=== PATIENT | female | born 1990 | race Caucasian/White ===

== ENCOUNTER 2018-02-12 06:20 | Day surgery (SDC) | payer MEDICAID, OTHER ==
[2018-02-06 17:59] VITALS: BMI 25.0
[~2018-02-12 06:20] MED LIST: DEXAMETHASONE SOD PHOSPHATE 10 MG/ML 1 ML VIAL IV ONE; HEPARIN SODIUM,PORCINE 5,000 UNIT/ML 1 ML VIAL SQ ONE; LACTATED RINGERS 1,000 ML IV SCH; LIDOCAINE 1% 20 ML VIAL (10MG/ML) FOR IV START INTRADERMA PRN; MORPHINE SULFATE 2 MG/ML SYRINGE IV PRN; ONDANSETRON 4 MG/2 ML VIAL IVP ONE; SCOPOLAMINE 1.5MG/72HR PATCH TRANSDERM ONE; ceFAZolin IN SWFI 2 GM/20 ML SYRINGE IVP ONE
[2018-02-12 07:01] VITALS: TEMP 97.2
[2018-02-12 07:32] LABS: Basophils % (A) 1 %; Eosinophils # (A) 0.2 k/uL (0-0.7); Eosinophils % (A) 3 %; HCT 36.6 % (34.0-46.0); HGB 12.5 gm/dL (11.4-16.0); Lymphocytes # (A) 1.3 k/uL (1.0-4.8); Lymphocytes % (A) 26 %; MCH 29.8 pg (25.0-35.0); MCHC 34.2 g/dL (31.0-37.0); MCV 87.3 fL (80.0-100.0); Mean Platelet Volume 8.5; Monocytes # (A) 0.3 k/uL (0-1.0); Monocytes % (A) 6 %; Neutrophils # (A) 2.9 k/uL (1.3-7.7); Neutrophils % (A) 61 %; Platelet Count 201 k/uL (150-450); WBC 4.8 k/uL (3.8-10.6)
--- NOTE | 2018-02-12 07:47 | P.GSHP ---
History of Present Illness H&P Date: 02/12/18 Chief Complaint: Ventral hernia Patient here today for elective repair of a incarcerated ventral hernia. This is causing pain at times. This is increasing in size. No prior trauma or surgeries at that location. Location just above the umbilicus. Past Medical History Past Medical History: Asthma Additional Past Medical History / Comment(s): SEASONAL ALLERGIES. INCARCERATED VENTRAL HERNIA. History of Any Multi-Drug Resistant Organisms: None Reported Past Surgical History: Section Additional Past Surgical History / Comment(s): CERVICAL CYST REMOVED Past Anesthesia/Blood Transfusion Reactions: Motion Sickness Smoking Status: Never smoker - Past Family History Mother Family Medical History: Cancer Medications and Allergies Home Medications Medication Instructions Recorded Confirmed Type Iron (Unknown Dose) 1 tab PO BID 02/06/18 History Allergies Allergy/AdvReac Type Severity Reaction Status Date / Time No Known Allergies Allergy Verified 02/06/18 17:29 Surgical - Exam Vital Signs Temp Pulse Resp BP Pulse Ox 97.2 F L 61 16 103/59 99 02/12/18 07:00 02/12/18 07:00 02/12/18 07:00 02/12/18 07:00 02/12/18 07:00 Physical exam: General: Well-developed, well-nourished HEENT: Normocephalic, sclerae nonicteric Abdomen: Nontender, nondistended, incarcerated hernia present 2 cm above the umbilicus, fascial defect unable to be palpated Extremities: No edema Neuro: Alert and oriented Results - Labs 02/12/18 07:25 Assessment and Plan (1) Incarcerated ventral hernia Narrative/Plan: Will proceed with operative repair with possible mesh. Risks of bleeding, infection, recurrence, bowel and bladder injury, pain, scarring, seroma formation were reviewed. Patient understands and wishes to proceed. Current Visit: Yes Status: Acute Code(s): K46.0 - UNSP ABDOMINAL HERNIA WITH OBSTRUCTION, WITHOUT GANGRENE SNOMED Code(s): 190141196
[2018-02-12] MEDS ORDERED: MIDAZOLAM 2 MG/2 ML VIAL ONE (08:33)
[2018-02-12] MEDS ORDERED: LIDOCAINE 1% INJ 10MG/ML (20 ML MDV) ONE (08:33)
[2018-02-12] MEDS ORDERED: KETOROLAC 30 MG/ML 1 ML VIAL ONE (08:33)
[2018-02-12] MEDS ORDERED: fentaNYL (PF) 50 MCG/ML 2 ML AMP ONE (08:33)
[2018-02-12] MEDS ORDERED: PROPOFOL 10 MG/ML 20 ML VIAL IV ONE (08:33)
[2018-02-12] MEDS ORDERED: BUPIVACAINE (PF) 0.5% 30 ML VIAL SQ ONE ×2 (08:51)
[2018-02-12] MEDS ORDERED: LACTATED RINGERS 1,000 ML IV ONE (09:29)
[2018-02-12] MEDS ORDERED: HYDROcodone/APAP 5-325MG 1 EACH TAB PO PRN (09:34)
[2018-02-12] MEDS ORDERED: NALOXONE 0.4 MG/ML 1 ML VIAL IV PRN (09:34)
--- NOTE | 2018-02-12 09:39 | P.OP ---
Date of Procedure: 02/12/18 Procedure(s) Performed: PREOPERATIVE DIAGNOSIS: Incarcerated ventral hernia POSTOPERATIVE DIAGNOSIS: Same PROCEDURE: Incarcerated ventral herniorrhaphy with mesh SURGEON: Tiffany EBL: Minimal ANESTHESIA: General COMPLICATIONS: None OPERATIVE PROCEDURE: The patient was placed in the operating table in the supine position. A supraumbilical midline incision was made using the scalpel. The subcutaneous tissues were dissected bluntly. The hernia sac was identified. The hernia sac was partially excised. The remainder of the preperitoneal fat was reduced back into the preperitoneal space. The repairwas bluntly dissected. The defect in the fascia measured approximately 1.2 cm in diameter. We had adequate space in the preperitoneal location for a or 4.3 cm mesh. The 4.3 cm ventral ex mesh was utilized. The cyst was placed in the preparedand sutured to the fascia using interrupted 0 Ethibond trans-fascial sutures. The remaining defect was then closed using [id number] 0 Ethibond sutures. The subcutaneous tissues were reapproximated using inverted 3-0 Vicryl sutures. The skin was closed using 4-0 Monocryl sutures. Steri-Strips and sterile dressings were then applied. DISPOSITION: Stable to recovery room
--- NOTE | 2018-02-12 10:37 | P.ONQ ---
Anesthesiology Proc Note - PNB - Peripheral Nerve Block Performed Right Transversus Abdominis Single Time Out Performed: Yes Procedure Start Time: 10:10 Procedure Stop Time: 10:20 Indication: Acute Post-Operative Pain Sedation Type: Awake Preparation: Sterile Prep Position: Supine Needle Types: Other (see comment) (PUJUNK) Needle Size: 100mm (4") Needle Gauge: 20 Technique: Ultrasound Injectate: Other (see comment) (Ropivacaine 0.25 % 20 ml) Blood Aspirated: No Pain Paresthesia on Injection Noted: No Resistance on Injection: Normal Events: Uneventful and Well Tolerated (patients was complaing of sever abdominal pain post op pain in the PACU)
--- NOTE | 2018-02-12 10:40 | P.ONQ ---
Anesthesiology Proc Note - PNB - Peripheral Nerve Block Performed Left Transversus Abdominis Single Time Out Performed: Yes Procedure Start Time: :23 Procedure Stop Time: :30 Indication: Acute Post-Operative Pain Sedation Type: Awake Preparation: Sterile Prep Needle Types: Other (see comment) (PUJUNK) Needle Gauge: 20 Technique: Ultrasound Injectate: Other (see comment) (Ropivacain 0.25 % 20 ml) Blood Aspirated: No Pain Paresthesia on Injection Noted: No Resistance on Injection: Normal Events: Uneventful and Well Tolerated (the block done in the PACU , because pateints was complaining of sever abdominal pain .)
[2018-02-12 11:08] VITALS: RESP 16
[2018-02-12 11:37] VITALS: BP 101/66; PULSE 68
== END 2018-02-12 11:58 | disposition home or self-care (01) ==
LOC: OR 06:20
PROVIDERS: ATTEND Surgery
DX: K43.6 Other and unspecified ventral hernia with obstruction, without gangrene (principal); J45.909 Unspecified asthma, uncomplicated
CPT/HCPCS: 81025; 85025; 88302; 49561; 49568; 64488; C1781; J2250; J1644; J1100; J2405; J2001; J3010; J1885; J2704; J0690

== ENCOUNTER 2018-09-25 16:54 | Emergency (ER) | payer MEDICAID ==
[2018-09-25 17:03] VITALS: PULSE 79; TEMP 97.8
[2018-09-25 18:27] LABS: Basophils # (A) 0.1 k/uL (0-0.2); Basophils % (A) 1 %; Eosinophils # (A) 0.2 k/uL (0-0.7); Eosinophils % (A) 4 %; HCT 38.6 % (34.0-46.0); HGB 13.2 gm/dL (11.4-16.0); Lymphocytes # (A) 1.4 k/uL (1.0-4.8); Lymphocytes % (A) 25 %; MCHC 34.2 g/dL (31.0-37.0); MCV 90.7 fL (80.0-100.0); Mean Platelet Volume 8.8; Monocytes # (A) 0.2 k/uL (0-1.0); Monocytes % (A) 4 %; Neutrophils # (A) 3.7 k/uL (1.3-7.7); Neutrophils % (A) 65 %; Platelet Count 191 k/uL (150-450); RBC 4.25 m/uL (3.80-5.40); RDW 12.1 % (11.5-15.5); WBC 5.7 k/uL (3.8-10.6)
[2018-09-25 18:35] LABS: Partial Thromboplastin Time 27.1 sec (22.0-30.0); Prothrombin Time 10.9 sec (9.0-12.0)
[2018-09-25 18:39] LABS: ALT 28 U/L (9-52); AST 23 U/L (14-36); Albumin 4.8 g/dL (3.5-5.0); Alkaline Phosphatase 62 U/L (38-126); Anion Gap 9 mmol/L; Blood Urea Nitrogen 17 mg/dL (7-17); Calcium 9.5 mg/dL (8.4-10.2); Carbon Dioxide 26 mmol/L (22-30); Chloride 104 mmol/L (98-107); Creatine Kinase 95 U/L (30-135); Glucose 85 mg/dL (74-99); Lipase 52 U/L (23-300); Potassium 3.8 mmol/L (3.5-5.1); Sodium 139 mmol/L (137-145); Total Bilirubin 0.9 mg/dL (0.2-1.3); Total Protein 7.3 g/dL (6.3-8.2)
[2018-09-25 18:53] LABS: Creatine Kinase MB 0.6 ng/mL (0.0-2.4); Troponin I <0.012 ng/mL (0.000-0.034)
--- NOTE | 2018-09-25 18:54 | ED ---
Chest Pain HPI - General Chief Complaint: Extremity Injury, Upper Stated Complaint: lt arm numbness Time Seen by Provider: 09/25/18 17:06 Source: patient, RN notes reviewed, old records reviewed Mode of arrival: ambulatory Limitations: no limitations - History of Present Illness Initial Comments: This is a 28-year-old female the ER for evaluation. This patient presents today for evaluation regards to left arm numbness. Patient states she does have strong family history of heart disease, patient would like to be evaluated for her heart, states that she had both brother and father at young age of heart disease. She denies any chest pain or shortness of breath, symptoms of been persistent up today should see her family doctor earlier in the day with no significant symptoms or change. She did not make mention of her left arm numbness at the time but symptoms have persisted and made her worried. Patient has no medical history takes no medications denies drugs or alcohol abuse MD Complaint: other (Left arm numbness) -: hour(s) Onset: during rest Pain Location: other (No pain) Pain Radiation: LUE (Numbness) Severity: mild Severity scale (1-10): 2 Consistency: constant Improves With: nothing Worsens With: nothing Context: other (None) Anginal Symptoms: other (None) Other Symptoms: other (None) Treatments Prior to Arrival: none - Related Data Home Medications Medication Instructions Recorded Confirmed Dextroamphetamine/Amphetamine 30 mg PO BID 09/25/18 09/25/18 [Adderall] Allergies Allergy/AdvReac Type Severity Reaction Status Date / Time No Known Allergies Allergy Verified 09/25/18 17:18 Review of Systems ROS Statement: Those systems with pertinent positive or pertinent negative responses have been documented in the HPI. ROS Other: All systems not noted in ROS Statement are negative. EKG Findings - EKG Comments: EKG Findings:: EKG shows sinus rhythm rate of 70, TN 94, QRS 70, QTc 444 Past Medical History Past Medical History: Asthma Additional Past Medical History / Comment(s): SEASONAL ALLERGIES. INCARCERATED VENTRAL HERNIA. History of Any Multi-Drug Resistant Organisms: None Reported Past Surgical History: Section Additional Past Surgical History / Comment(s): CERVICAL CYST REMOVED Past Anesthesia/Blood Transfusion Reactions: Motion Sickness Past Psychological History: ADD/ADHD Smoking Status: Never smoker Past Alcohol Use History: None Reported Past Drug Use History: None Reported - Past Family History Mother Family Medical History: Cancer General Exam Limitations: no limitations General appearance: alert, in no apparent distress Head exam: Present: atraumatic, normocephalic, normal inspection Eye exam: Present: normal appearance, PERRL, EOMI. Absent: scleral icterus, conjunctival injection, periorbital swelling ENT exam: Present: normal exam, mucous membranes moist Neck exam: Present: normal inspection. Absent: tenderness, meningismus, lymphadenopathy Respiratory exam: Present: normal lung sounds bilaterally. Absent: respiratory distress, wheezes, rales, rhonchi, stridor Cardiovascular Exam: Present: regular rate, normal rhythm, normal heart sounds. Absent: systolic murmur, diastolic murmur, rubs, gallop, clicks GI/Abdominal exam: Present: soft, normal bowel sounds. Absent: distended, tenderness, guarding, rebound, rigid Extremities exam: Present: normal inspection, full ROM, normal capillary refill. Absent: tenderness, pedal edema, joint swelling, calf tenderness Back exam: Present: normal inspection Neurological exam: Present: alert, oriented X3, CN II-XII intact Psychiatric exam: Present: normal affect, normal mood Skin exam: Present: warm, dry, intact, normal color. Absent: rash Course Vital Signs 09/25/18 09/25/18 16:59 19:05 Temperature 97.8 F Pulse Rate 79 79 Respiratory 18 16 Rate Blood Pressure 134/89 111/69 O2 Sat by Pulse 100 100 Oximetry - Reevaluation(s) Reevaluation #1: Records reviewed Patient continues to deny chest pain shortness of breath nausea or diaphoresis Chest Pain MDM - MDM Plan I female the ER for evaluation, patient concern for heart. Patient has normal EKG and normal troponin. Patient offered inpatient observation, she refuses sustain at this time. Patient will be discharged home, EKG troponin chest x-ray negative again. She denies any chest pain or shortness of breath Disposition Clinical Impression: Chest pain Disposition: HOME SELF-CARE Condition: Good Instructions: Chest Pain (ED) Is patient prescribed a controlled substance at d/c from ED?: No Referrals: Felipe Milton DO [Primary Care Provider] - 1-2 days
[2018-09-25 19:07] VITALS: BP 111/69; RESP 16
--- NOTE | 2018-09-26 05:30 | CDI ---
Dear Wan Moser DO: Please do addendum History of Present Illness and Physical Examination. Thank you, Elvira Arreguin, [employer]. If you have any questions, please contact [employer] at [phone]. [facility]
== END 2018-09-25 19:33 | disposition home or self-care (01) ==
LOC: EC 16:54
DX: R07.9 Chest pain, unspecified (principal); R20.0 Anesthesia of skin; F90.9 Attention-deficit hyperactivity disorder, unspecified type; Z79.899 Other long term (current) drug therapy; Z82.49 Family history of ischemic heart disease and other diseases of the circulatory system; Z53.20 Procedure and treatment not carried out because of patient's decision for unspecified reasons
CPT/HCPCS: 36415; 80053; 82550; 82553; 83690; 83735; 83880; 84484; 85025; 85610; 85730; 93005; 99284